=== PATIENT | male | born 1955 | race Hispanic/Latino ===

== ENCOUNTER → 2018-02-01 | Outpatient (CLI) | payer OTHER | END | disposition home or self-care (01) | LOC: SHCH 14:00 | PROVIDERS: ATTEND Internal Medicine Cardiovascular Disease | DX: I73.9 Peripheral vascular disease, unspecified (principal) | CPT/HCPCS: 93925 ==

== ENCOUNTER → 2019-03-28 | Outpatient (CLI) | payer OTHER | END | disposition home or self-care (01) | LOC: RAH 10:02 | PROVIDERS: ATTEND Internal Medicine | DX: M79.661 Pain in right lower leg (principal) | CPT/HCPCS: 93971 ==

== ENCOUNTER 2020-04-04 07:28 | Day surgery (SDC) | payer OTHER ==
[2020-04-04] VITALS (9 sets, daily range): BP systolic 132–138; BP diastolic 85–92
[~2020-04-04] VITALS: Ht 167.6 cm; Wt 144.2 kg
[~2020-04-04 07:28] MED LIST: ALLO300T2 PO; ASPI-555 PO; CLON0.2T PO; DOXA8TAB81 PO; FLUT1BLS IH; FURO40TA5 PO; GLIM4TAB36 PO; HYDR-4153 PO; LISI40TA4 PO; LORA10TA7 PO; MONT10TA26 PO; OMEG1CAP31 PO; POTA-79 PO; SIMV-43 PO; SOTA120T PO; WARF-57 PO
[2020-04-04] MEDS ORDERED: SODIUM CHLORIDE 0.9% 1000ML 1,000 ML IV ONE (07:31)
[2020-04-04 07:50] LABS: BASOPHILS % (AUTO) 0.8 % (0.0-5.0); EOSINOPHILS % (AUTO) 2.8 % (0.0-8.0); HEMATOCRIT 45.6 % (42-54); MEAN CORPUSCULAR HEMOGLOBIN 27.7 pg (27.0-33.0); MEAN CORPUSCULAR HGB CONC 32.5 g/dL (32.0-36.0); MEAN CORPUSCULAR VOLUME 85.2 fL (79-99); MONOCYTES % (AUTO) 6.7 % (3.0-13.0); NEUTROPHILS % (AUTO) 71.4 % (40.0-77.0); PLATELET COUNT (AUTO) 152 K/uL (130-400); RED BLOOD CELL COUNT(AUTO) 5.35 MIL/uL (4.50-6.20); WHITE BLOOD COUNT (AUTO) 7.7 K/uL (4.8-10.8)
[2020-04-04] MEDS ORDERED: CEFAZOLIN SODIUM 1 GM VIAL IVP SCH (08:00)
--- NOTE | 2020-04-04 08:00 | NUR ---
PREOP PT ARRIVED AMBULATORY IN NO DISTRESS. PT ORIENTED TO ROOM AND CALL LIGHT. PT CONNECTED TO TRAY FILLER. PT HERE FOR AICD GENERATOR REPLACEMENT
[2020-04-04] MEDS ORDERED: BUPIVACAINE/PF 0.25% 30ML VIAL IJ ONE (08:05)
[2020-04-04] MEDS ORDERED: CEFAZOLIN SODIUM 1 GM VIAL ONE (08:05)
[2020-04-04] MEDS ORDERED: LIDOCAINE HCL 1% MDV 50ML VIAL ONE (08:06)
[2020-04-04] MEDS ORDERED: MEPERIDINE-PF 50 MG/ML SYG ONE (08:06)
[2020-04-04] MEDS ORDERED: MIDAZOLAM HCL 1 MG/ML 2ML VIAL ONE ×2 (08:06→09:29)
[2020-04-04 08:16] LABS: CREATININE 1.2 mg/dL (0.5-1.5)
[2020-04-04 08:19] LABS: INR 1.25 (0.85-1.15); PARTIAL THROMBOPLASTIN TIME 32.6 SEC (26.3-35.5); PROTHROMBIN TIME 13.4 SEC (9.6-11.6)
--- NOTE | 2020-04-04 08:40 | NUR ---
tanb[facility] laborer pt taken to tanbark laborer via bed in no distress
--- NOTE | 2020-04-04 08:42 | NUR ---
ASSESSMENT ADDENDUM PT HAS HYPERPIGMENTATION TO BILAT LOWER EXTREMITIES.
[2020-04-04] MEDS ORDERED: ACETAMINOPHEN-CODEINE 300/30MG TAB PO PRN (10:15)
[2020-04-04] MEDS ORDERED: TRAM50TA4 PO (10:20)
--- NOTE | 2020-04-04 10:30 | NUR ---
post cath pt arrived via bed in nlow fowlers in no distress. received report from asher chávez rn from lab specialist. pt bedrest 3 hours.
--- NOTE | 2020-04-04 13:30 | NUR ---
DISCHARGE PT AND SPOUSE GIVEN DISCHARGE INSTRUCTIONS, ID CARD, BIOTRONIK DEVICE AND BELONGINGS. PT TAKEN OUT VIA W/C IN NO DISTRESS. LEFT CHEST WALL DRESSING UNCHANGED NO BLEEDING OR HEMATOMA NOTED
== END 2020-04-04 13:30 | disposition home or self-care (01) ==
LOC: DAH 07:28
PROVIDERS: ATTEND Internal Medicine Cardiovascular Disease
DX: I42.0 Dilated cardiomyopathy (principal); I48.0 Paroxysmal atrial fibrillation; J44.9 Chronic obstructive pulmonary disease, unspecified; G47.30 Sleep apnea, unspecified; I11.0 Hypertensive heart disease with heart failure; I50.22 Chronic systolic (congestive) heart failure; Z88.8 Allergy status to other drugs, medicaments and biological substances; E66.01 Morbid (severe) obesity due to excess calories; Z79.899 Other long term (current) drug therapy; Z98.890 Other specified postprocedural states; Z68.42 Body mass index [BMI] 45.0-49.9, adult; Z79.2 Long term (current) use of antibiotics; Z79.01 Long term (current) use of anticoagulants
CPT/HCPCS: 33264; 36415; 80048; 85025; 85610; 85730; 93005; A4215; A4216; A4221; A4222; A4223 ×3; A4606; A4663; A6206; C1882; J0690; J2175; J2250 ×2; J3490 ×2; J7030 ×2; 33229; 99156; 99157

== ENCOUNTER 2020-06-08 05:57 | Day surgery (SDC) | payer OTHER ==
[2020-06-05 09:26] LABS: BASOPHILS % (AUTO) 0.7 % (0.0-5.0); EOSINOPHILS % (AUTO) 1.8 % (0.0-8.0); HEMATOCRIT 44.1 % (42-54); LYMPHOCYTES % (AUTO) 15.1 % (21.0-51.0); MEAN CORPUSCULAR HEMOGLOBIN 27.1 pg (27.0-33.0); MEAN CORPUSCULAR HGB CONC 32.4 g/dL (32.0-36.0); MEAN CORPUSCULAR VOLUME 83.5 fL (79-99); MONOCYTES % (AUTO) 6.8 % (3.0-13.0); NEUTROPHILS % (AUTO) 75.3 % (40.0-77.0); PLATELET COUNT (AUTO) 165 K/uL (130-400); RED BLOOD CELL COUNT(AUTO) 5.28 MIL/uL (4.50-6.20); RED CELL DISTRIBUTION WIDTH 15.2 % (11.0-15.5); WHITE BLOOD COUNT (AUTO) 9.2 K/uL (4.8-10.8)
[2020-06-05 09:35] LABS: CREATININE 1.3 mg/dL (0.5-1.5); POTASSIUM 3.9 mmol/L (3.5-5.1)
[2020-06-05 13:45] VITALS: BP 147/84
[2020-06-08] VITALS (9 sets, daily range): BP systolic 121–144; BP diastolic 66–98
[~2020-06-08] VITALS: Ht 167.6 cm; Wt 146.0 kg
[~2020-06-08 05:57] MED LIST changes: -ASPI-555 PO; +ASPI-556 PO; +SODIUM CHLORIDE 0.9% 500ML 500 ML IV SCH
[2020-06-08] MEDS ORDERED: LIDOCAINE PF 2% 5ML ABBOJECT ONE (08:02)
[2020-06-08] MEDS ORDERED: PROPOFOL 10 MG/ML 20ML VIAL IV ONE (08:02)
== END 2020-06-08 09:10 | disposition home or self-care (01) ==
LOC: DAH 05:57
PROVIDERS: ATTEND Internal Medicine Cardiovascular Disease
DX: I48.19 Other persistent atrial fibrillation (principal); Z11.59 Encounter for screening for other viral diseases; I42.0 Dilated cardiomyopathy; E11.9 Type 2 diabetes mellitus without complications; J44.9 Chronic obstructive pulmonary disease, unspecified; I25.10 Atherosclerotic heart disease of native coronary artery without angina pectoris; G47.30 Sleep apnea, unspecified; I50.22 Chronic systolic (congestive) heart failure; Z88.8 Allergy status to other drugs, medicaments and biological substances; Z79.82 Long term (current) use of aspirin; Z79.899 Other long term (current) drug therapy; Z79.01 Long term (current) use of anticoagulants; Z95.810 Presence of automatic (implantable) cardiac defibrillator; Z87.891 Personal history of nicotine dependence; Z82.49 Family history of ischemic heart disease and other diseases of the circulatory system; Z83.3 Family history of diabetes mellitus
CPT/HCPCS: 36415; 80048; 82948; 85025; 92960; 93005; A4215 ×2; A4216; A4221; A4222; A4223 ×3; A4606; A4615; A4663; J2001; J2704; J7030; U0003; 99156

== ENCOUNTER 2020-10-08 07:55 | Day surgery (SDC) | payer OTHER ==
[2020-10-02 09:28] LABS: BASOPHILS % (AUTO) 0.8 % (0.0-5.0); EOSINOPHILS % (AUTO) 1.8 % (0.0-8.0); HEMATOCRIT 44.8 % (42-54); LYMPHOCYTES % (AUTO) 16.4 % (21.0-51.0); MEAN CORPUSCULAR HEMOGLOBIN 27.1 pg (27.0-33.0); MEAN CORPUSCULAR HGB CONC 32.6 g/dL (32.0-36.0); MEAN CORPUSCULAR VOLUME 83.1 fL (79-99); MONOCYTES % (AUTO) 8.3 % (3.0-13.0); NEUTROPHILS % (AUTO) 72.4 % (40.0-77.0); PLATELET COUNT (AUTO) 157 K/uL (130-400); RED BLOOD CELL COUNT(AUTO) 5.39 MIL/uL (4.50-6.20); RED CELL DISTRIBUTION WIDTH 16.1 % (11.0-15.5); WHITE BLOOD COUNT (AUTO) 7.7 K/uL (4.8-10.8)
[2020-10-02 09:40] LABS: CREATININE 1.5 mg/dL (0.5-1.5); POTASSIUM 4.1 mmol/L (3.5-5.1)
[2020-10-02 10:11] LABS: INR 3.02 (0.85-1.15); PARTIAL THROMBOPLASTIN TIME 42.4 SEC (26.3-35.5); PROTHROMBIN TIME 31.3 SEC (9.6-11.6)
--- NOTE | 2020-10-05 15:04 | NUR ---
SPOKE TO PRAKASH SALAZAR ABOUT INR OF 3.02, NEW ORDER TO REPEAT INR DAY OF PROCEDURE.
[2020-10-05 16:15] VITALS: BP 134/87
[~2020-10-08] VITALS: Ht 170.2 cm; Wt 146.7 kg
[~2020-10-08 07:55] MED LIST changes: +DRON400T2 PO; +SODIUM CHLORIDE 0.9% 1000ML 1,000 ML IV SCH; -SODIUM CHLORIDE 0.9% 500ML 500 ML IV SCH; -SOTA120T PO
[2020-10-08 09:00] VITALS: BP 127/79
[2020-10-08 09:11] LABS: INR 2.4 (0.85-1.15); PROTHROMBIN TIME 25.1 SEC (9.6-11.6)
[2020-10-08] MEDS ORDERED: PROPOFOL 10 MG/ML 20ML VIAL IV ONE (09:48)
[2020-10-08 10:15] VITALS: BP 114/77
--- NOTE | 2020-10-08 10:15 | NUR ---
post cardioversion- PT IS AWAKE AND ALERT. AIRWAY PATENT. NO DISTRESS.
[2020-10-08 10:30] VITALS: BP 116/73
[2020-10-08 10:45] VITALS: BP 110/75
[2020-10-08 11:00] VITALS: BP 110/75
[2020-10-08 11:15] VITALS: BP 126/78
--- NOTE | 2020-10-08 11:20 | NUR ---
PT DISCHARGED HOME- ALERT AWAKE AND ORIENTEDX3. SPEECH CLEAR. AMBULATORY IN ROOM. IV CATH REMOVED INTACT. TO CAR VIA WHEELCHAIR. PRINTED AND VERBAL DISCHARGE INSTRUCTIONS GIVEN. VERBALIZES UNDERSTANDING. NO ACUTE DISTRESS NOTED
== END 2020-10-08 11:20 | disposition home or self-care (01) ==
LOC: DAH 07:55
PROVIDERS: ATTEND Internal Medicine Cardiovascular Disease
DX: I48.19 Other persistent atrial fibrillation (principal); I50.22 Chronic systolic (congestive) heart failure; Z95.810 Presence of automatic (implantable) cardiac defibrillator; G47.33 Obstructive sleep apnea (adult) (pediatric); Z79.01 Long term (current) use of anticoagulants; Z79.899 Other long term (current) drug therapy; Z20.828 Contact with and (suspected) exposure to other viral communicable diseases
CPT/HCPCS: 36415 ×2; 80048; 82948; 85025; 85610 ×2; 85730; 92960; A4215; A4216; A4221; A4222; A4223 ×3; A4606; A4663; C9803; J2704; J7030; U0003

== ENCOUNTER 2021-01-04 11:18 | Day surgery (SDC) | payer OTHER ==
[2021-01-01 11:42] LABS: BASOPHILS % (AUTO) 1.1 % (0.0-5.0); EOSINOPHILS % (AUTO) 1.7 % (0.0-8.0); HEMATOCRIT 43.4 % (42-54); LYMPHOCYTES % (AUTO) 13.9 % (21.0-51.0); MEAN CORPUSCULAR HEMOGLOBIN 27.2 pg (27.0-33.0); MEAN CORPUSCULAR HGB CONC 32.3 g/dL (32.0-36.0); MEAN CORPUSCULAR VOLUME 84.3 fL (79-99); MONOCYTES % (AUTO) 6.6 % (3.0-13.0); NEUTROPHILS % (AUTO) 76.3 % (40.0-77.0); PLATELET COUNT (AUTO) 164 K/uL (130-400); RED BLOOD CELL COUNT(AUTO) 5.15 MIL/uL (4.50-6.20); RED CELL DISTRIBUTION WIDTH 16.5 % (11.0-15.5); WHITE BLOOD COUNT (AUTO) 7.1 K/uL (4.8-10.8)
[2021-01-01 11:59] LABS: CREATININE 1.5 mg/dL (0.5-1.5); POTASSIUM 4.1 mmol/L (3.5-5.1)
[2021-01-03 09:07] VITALS: BP 136/82
[2021-01-04] VITALS (10 sets, daily range): BP systolic 124–147; BP diastolic 81–94
[~2021-01-04] VITALS: Ht 170.2 cm; Wt 140.6 kg
[~2021-01-04 11:18] MED LIST changes: +AMIO200T6 PO; -DRON400T2 PO; -LISI40TA4 PO; +LISI40TA9 PO; -MONT10TA26 PO; +MONT10TA32 PO
[2021-01-04] MEDS ORDERED: LIDOCAINE PF 2% 5ML ABBOJECT ONE (13:02)
[2021-01-04 13:53] LABS: INR 2.35 (0.85-1.15); PROTHROMBIN TIME 23.7 SEC (9.6-11.6)
[2021-01-04 13:55] LABS: PARTIAL THROMBOPLASTIN TIME 38.6 SEC (26.3-35.5)
== END 2021-01-04 14:25 | disposition home or self-care (01) ==
LOC: DAH 11:18
PROVIDERS: ATTEND Internal Medicine Cardiovascular Disease
DX: I48.19 Other persistent atrial fibrillation (principal); Z20.822 Contact with and (suspected) exposure to COVID-19; I50.42 Chronic combined systolic (congestive) and diastolic (congestive) heart failure; G47.30 Sleep apnea, unspecified; J44.9 Chronic obstructive pulmonary disease, unspecified; E66.01 Morbid (severe) obesity due to excess calories; Z88.8 Allergy status to other drugs, medicaments and biological substances; Z79.84 Long term (current) use of oral hypoglycemic drugs; Z79.82 Long term (current) use of aspirin; Z95.810 Presence of automatic (implantable) cardiac defibrillator; Z79.01 Long term (current) use of anticoagulants; Z68.42 Body mass index [BMI] 45.0-49.9, adult
CPT/HCPCS: 36415 ×2; 80048; 82948; 85025; 85610; 85730; 92960; 93005; A4215; A4216; A4221; A4222; A4223 ×3; A4606; A4663; C9803; J2001; J7030; U0003; 99152; 99156

== ENCOUNTER → 2023-01-05 | Outpatient (CLI) | payer OTHER ==
[~2023-01-05] MED LIST changes: -AMIO200T6 PO; +AMIO200T68 PO; +MONT-39 PO; -MONT10TA32 PO; +REGADENOSON 0.4 MG/5 ML PF SYG IVP ONE; -SODIUM CHLORIDE 0.9% 1000ML 1,000 ML IV SCH
== END | disposition home or self-care (01) ==
LOC: SHCH 07:48
PROVIDERS: ATTEND Internal Medicine Cardiovascular Disease
DX: R94.39 Abnormal result of other cardiovascular function study (principal); I25.10 Atherosclerotic heart disease of native coronary artery without angina pectoris; I50.22 Chronic systolic (congestive) heart failure; Z95.0 Presence of cardiac pacemaker
CPT/HCPCS: 78452; 96374; 93017; J2785; A9500 ×2

== ENCOUNTER → 2023-12-23 | Outpatient (CLI) | payer OTHER ==
[~2023-12-23] MED LIST changes: +POTA-364 PO; -POTA-79 PO; -REGADENOSON 0.4 MG/5 ML PF SYG IVP ONE
[2023-12-23 16:30] LABS: ALBUMIN 2.9 g/dL (3.5-5.0); BILIRUBIN,TOTAL 0.5 mg/dL (0.2-1.0); CREATININE 1.3 mg/dL (0.5-1.5); POTASSIUM 4.8 mmol/L (3.5-5.1); TOTAL PROTEIN, SERUM 7.2 g/dL (6.0-8.3)
== END | disposition home or self-care (01) ==
LOC: LAB 13:45
PROVIDERS: ATTEND Physician Assistant
DX: I42.0 Dilated cardiomyopathy (principal); I50.22 Chronic systolic (congestive) heart failure
CPT/HCPCS: 36415; 80053; 83880

== ENCOUNTER → 2024-05-10 | Outpatient (CLI) | payer OTHER ==
[~2024-05-10] MED LIST changes: -HYDR-4153 PO; +HYDR25TA67 PO
[2024-05-10 12:30] LABS: INR 1.46 (0.85-1.15); PROTHROMBIN TIME 16.8 SEC (9.6-11.6)
== END | disposition home or self-care (01) ==
LOC: LAB 10:21
PROVIDERS: ATTEND Internal Medicine Cardiovascular Disease
DX: Z79.01 Long term (current) use of anticoagulants (principal)
CPT/HCPCS: 36415; 85610

== ENCOUNTER → 2024-05-17 | Outpatient (CLI) | payer OTHER ==
[2024-05-17 13:16] LABS: INR 1.91 (0.85-1.15); PROTHROMBIN TIME 19.5 SEC (9.6-11.6)
== END | disposition home or self-care (01) ==
LOC: LAB 10:59
PROVIDERS: ATTEND Internal Medicine Cardiovascular Disease
DX: Z79.01 Long term (current) use of anticoagulants (principal)
CPT/HCPCS: 36415; 85610

== ENCOUNTER → 2024-12-06 | Outpatient (CLI) | payer OTHER ==
[2024-12-06 13:00] LABS: INR 2.3 (0.85-1.15); PROTHROMBIN TIME 23.7 SEC (9.6-11.6)
== END | disposition home or self-care (01) ==
LOC: LAB 10:34
PROVIDERS: ATTEND Internal Medicine Cardiovascular Disease
DX: I48.91 Unspecified atrial fibrillation (principal); Z79.01 Long term (current) use of anticoagulants
CPT/HCPCS: 36415; 85610